=== PATIENT | male | born 1985 | race African-American/Black ===

== ENCOUNTER 2023-07-06 20:57 | Emergency (ER) | payer OTHER ==
[~2023-07-06] VITALS: Ht 182.9 cm; Wt 78.0 kg
[2023-07-06 21:01] VITALS: BP 110/65; PULSE 92; RESP 16; TEMP 98.4; O2SAT 98
[2023-07-06] MEDS ORDERED: TETANUS, DIPHTHERIA, PERTUSSIS VAC/PF 0.5ML (>10YR OLD) IM ONE ×2 (21:30→23:30)
[2023-07-06] MEDS ORDERED: BACITRACIN ZINC OINT UDPKT TOP ONE (21:30)
[2023-07-06] MEDS ORDERED: LIDOCAINE HCL/PF 1% 10 MG/ML 5ML VIAL INFIL NR (21:30)
[2023-07-06] MEDS ORDERED: LIDOCAINE HCL/PF 1% 10 MG/ML 5ML VIAL INFIL ONE (21:30)
[2023-07-06] MEDS ORDERED: BACITRACIN ZINC OINT UDPKT TOP NR (21:30)
[2023-07-06] MEDS ORDERED: BO1 TP (22:35)
== END 2023-07-07 00:03 | disposition home or self-care (01) ==
LOC: ER 21:05
DX: S61.419A Laceration without foreign body of unspecified hand, initial encounter (principal); X58.XXXA Exposure to other specified factors, initial encounter; Y93.89 Activity, other specified; Y92.89 Other specified places as the place of occurrence of the external cause; Y99.8 Other external cause status
CPT/HCPCS: 12001; 90471; 90715; 99283